=== PATIENT | male | born 2000 | race African-American/Black ===

== ENCOUNTER 2023-10-28 17:52 | Emergency (ER) | payer OTHER, SELFPAY ==
[2023-10-28 17:54] VITALS: BP 125/76; PULSE 100; RESP 18; TEMP 36.6; O2SAT 98
[2023-10-28 18:36] VITALS: BP 102/72; PULSE 86; RESP 16; O2SAT 100
--- NOTE | 2023-10-28 18:52 | ECG_ITS ---
SEE SCANNED COPY FOR CONFIRMED REPORT MTDD
[2023-10-28 19:16] VITALS: BP 103/67; BP 109/64; BP 115/79; PULSE 86; PULSE 90; PULSE 96
[2023-10-28] MEDS: SODIUM CHLORIDE 0.9% IV 1,000 ML 999 ML IV CONT (19:19)
[2023-10-28 19:26] LABS: Basophils Percent Auto 0.7 % (0.2-1.2); Hematocrit 43.9 % (42.0-52.0); Hemoglobin 14.5 g/dL (14.0-18.0); Immature Granulocyte Absolute 0.02 K/mm3 (0.00-0.031); Immature Granulocyte Percent A 0.7 % (0-0.5); Lymphocytes Absolute Auto 1.16 K/mm3 (0.9-3.2); Lymphocytes Percent Auto 40.3 % (18.3-44.2); Mean Corpuscular Hemoglobin 29.2 pg (26-34); Mean Corpuscular Volume 88.3 fl (80-100); Mean Platelet Volume 10.4 fl (7.4-10.4); Monocytes Absolute Auto 0.3 K/mm3 (0.1-0.6); Monocytes Percent Auto 10.8 % (2.6-8.5); Neutrophils Absolute Auto 1.4 K/mm3 (1.3-6.7); Neutrophils Percent Auto 47.5 % (45.5-73.1); Platelet Count Result 123 k/mm3 (150-375); Red Blood Count 4.97 M/mm3 (4.6-6.20); Red Cell Distribution Width 11.8 % (11.5-14.5); White Blood Count 2.9 K/mm3 (4.5-10.0)
[2023-10-28 19:36] LABS: Alanine Aminotransferase 33 U/L (6-50); Albumin Level 3.3 g/dL (3.5-5.1); Alkaline Phosphatase 38 U/L (38-126); Anion Gap 5 mmol/L (4-12); Aspartate Amino Transferase 67 U/L (17-59); Bilirubin,Total 0.4 mg/dL (0.2-1.3); Blood Urea Nitrogen 8 mg/dL (9-20); Carbon Dioxide 29 mmol/L (22-30); Chloride 101 mmol/L (98-107); Estimated CRCL calculation 88 ml/min; Estimated Glomerular Filt Rate > 60; Glucose 90 mg/dL (65-110); Potassium 4.2 mmol/L (3.4-5.0); Sodium 135 mmol/L (137-145)
[2023-10-28 19:50] LABS: Troponin I < 0.012 ng/mL (0.000-0.034)
[2023-10-28 19:59] VITALS: BP 114/69; PULSE 60; RESP 14; O2SAT 100
--- NOTE | 2023-10-28 20:06 | ED.SYNCOPE ---
HPI - Syncope General Chief Complaint: Syncope Stated Complaint: syncopal episode Time Seen by Provider: 10/28/23 18:24 Source: patient Mode of arrival: ambulatory Limitations: no limitations History of Present Illness HPI narrative: 22-year-old otherwise healthy here with a complaint of having syncopal episode yesterday. Patient states that he donated plasma regard to his friend's house he was standing on the counter fell lightheaded and passed out for few minutes. Complains of right elbow pain. He denies any head or neck injuries. He presently complains of marked weakness. MD complaint: felt faint -: minutes(s) (1) Witnessed: Yes - by Other (friends) Context: standing up Injuries sustained associated with event: RUE Current symptoms: back to baseline Related Data Allergies Allergy/AdvReac Type Severity Reaction Status Date / Time No Known Allergies Allergy Verified 10/28/23 18:37 Review of Systems Review of Systems: All systems reviewed & are unremarkable except as noted in HPI and below Constitutional: Constitutional: Reports no additional constitutional complaints Eyes: Eyes: Reports no additional eye complaints ENT: Reports system reviewed and no additional complaints, except as documented Cardiovascular: Cardiovascular: Reports no additional cardiovascular complaints Respiratory: Respiratory: Reports no additional respiratory complaints Gastrointestinal: Gastrointestinal: Reports no additional gastrointestinal complaints Genitourinary: Genitourinary: Reports no additional male genitourinary complaints Exam Narrative: GENERAL: Well-appearing, well-nourished, and in no acute distress. HEAD: Normocephalic, atraumatic. EYES: PERRLA and EOMI. ENT: Nares clear, no rhinorrhea or epistaxis. Mucous membranes moist. NECK: Supple. CHEST: Clear to auscultation. No respiratory distress. HEART: Regular rate and rhythm. No murmur heard. Normal peripheral pulses. ABDOMEN: Soft, nontender, nondistended, normal active bowel sounds. EXTREMITIES: Normal range of motion. No edema. A small bruise noted on the right elbow SKIN: Warm, dry, no rash. NEURO: No focal deficits. Alert and oriented x3. PSYCH: Normal mood and affect. Course Course Emergency Course: They did give him a L of fluid obtained lab work and EKG which were all unremarkable. Patient states that he is feeling much better after IV fluids we did advise him to drink more fluids take Tylenol or ibuprofen for body pains. Vital Signs Vital signs: Vital Signs Temperature 36.6 C 10/28/23 17:54 Pulse Rate 100 10/28/23 17:54 Respiratory Rate 18 10/28/23 17:54 Blood Pressure 125/76 10/28/23 17:54 Pulse Oximetry 98 10/28/23 17:54 Oxygen Delivery Room Air 10/28/23 17:54 Temperature 36.6 C 10/28/23 17:54 Pulse Rate 60 10/28/23 19:59 Respiratory Rate 14 10/28/23 19:59 Blood Pressure 114/69 10/28/23 19:59 Pulse Oximetry 100 10/28/23 19:59 Oxygen Delivery Room Air 10/28/23 17:54 MDM - Syncope Differential Diagnosis Differential diagnosis: Likely syncope due to orthostatic hypotension and vasovagal syncope Medical Records Attestation: I reviewed the patient's medical records. Lab Data Attestation: I reviewed the patient's lab results. 10/28/23 19:15 10/28/23 19:15 Labs: Lab Results 10/28/23 Range/Units 19:15 WBC 2.9 L (4.5-10.0) K/mm3 RBC 4.97 (4.6-6.20) M/mm3 Hgb 14.5 (14.0-18.0) g/dL Hct 43.9 (42.0-52.0) % MCV 88.3 (80-100) fl MCH 29.2 (26-34) pg MCHC 33.0 (32-36) g/dl RDW 11.8 (11.5-14.5) % Plt Count 123 L (150-375) k/mm3 MPV 10.4 (7.4-10.4) fl Immature Gran % (Auto) 0.7 H (0-0.5) % Neut % (Auto) 47.5 (45.5-73.1) % Lymph % (Auto) 40.3 (18.3-44.2) % Kidder % (Auto) 10.8 H (2.6-8.5) % Eos % (Auto) 0.0 (0-4.4) % Baso % (Auto) 0.7 (0.2-1.2) % Lymph # (Auto) 1.16 (0.9-3.2) K/mm3 Kidder # (Auto) 0.3 (0.1-0.6) K/mm3
== END 2023-10-28 20:18 | disposition home or self-care (01) ==
PROVIDERS: Emergency Provider Family Medicine
DX: E86.0 Dehydration (principal); R55 Syncope and collapse; S50.01XA Contusion of right elbow, initial encounter; W18.30XA Fall on same level, unspecified, initial encounter
CPT/HCPCS: 36415; 80053; 84484; 85025; 93005; 96360; 99284; J7030